=== PATIENT | female | born 1990 | race Two or more races ===

== ENCOUNTER 2019-08-09 17:34 | Emergency (ER) | payer BC ==
[~2019-08-09] VITALS: Ht 167.6 cm; Wt 69.9 kg
--- NOTE | 2019-08-09 17:58 | NUR ---
DR BEBE HOFF
[2019-08-09] MEDS ORDERED: IV NS 0.9% 1,000 ML BAG IV ONE (18:00)
--- NOTE | 2019-08-09 18:02 | NUR ---
US AT BEDSIDE
[2019-08-09] MEDS ORDERED: KETOROLAC TROMETHAMINE INJ 30 MG/ML VIAL ONE (18:07)
--- NOTE | 2019-08-09 18:16 | NUR ---
BIBS TO ER BED 16. AAOX4. NOT IN RESP DISTRESS. AMBULATORY. CAME IN FOR HEACY VAGINAL BLEEDING THAT STARTED TODAY. PT STATES THAT SHE FOUND OUT THAT SHE HAD A MISCARRIAGE. PT REPORTS CRAMPING. BLEEDING IS BRIGHT RED BLOOD WITH CLOTS. GRICELDA CHAVES WAS AT BEDSIDE FOR EVAL. ORDERS RECEIVED NOTED AND CARRIED OUT.
[2019-08-09] MEDS ORDERED: MISOPROSTOL 100 MCG TABLET PO SCH ×2 (18:30→21:30)
[2019-08-09] MEDS ORDERED: KETOROLAC TROMETHAMINE INJ 30 MG/ML VIAL IV ONE (18:30)
[2019-08-09 18:36] LABS: BASOPHILS # (AUTO) 0.1 /CMM (0.0-0.2); BASOPHILS % (AUTO) 0.4 % (0.0-2.0); EOSINOPHILS % (AUTO) 0.3 % (0.0-6.0); HEMATOCRIT 31 % (33-45); HEMOGLOBIN 10.4 g/dL (11.5-14.8); LYMPHOCYTES # (AUTO) 0.9 /CMM (0.8-4.8); LYMPHOCYTES % (AUTO) 6.3 % (20.0-44.0); MEAN CORPUSCULAR HGB CONC 34 g/dl (31.0-36.0); MEAN CORPUSCULAR VOLUME 94 fL (82-100); MONOCYTES # (AUTO) 0.7 /CMM (0.1-1.30); MONOCYTES % (AUTO) 4.7 % (2.0-12.0); NEUTROPHILS % (AUTO) 88.3 % (43.0-81.0); PLATELET COUNT (AUTO) 196 /CMM (150-450); RED BLOOD CELL COUNT(AUTO) 3.25 MIL/uL (4.0-5.2); WHITE BLOOD COUNT (AUTO) 14.7 K/uL (4.3-11.0)
[2019-08-09 18:48] LABS: BILIRUBIN,DIRECT 0.1 mg/dL (0.0-0.2); BILIRUBIN,TOTAL 0.3 mg/dL (0.2-1.0); CALCIUM, SERUM 7.6 mg/dL (8.5-10.1); CREATININE 0.6 mg/dL (0.6-1.3); POTASSIUM 3.9 mmol/L (3.5-5.1); TOTAL PROTEIN, SERUM 5.8 g/dL (6.4-8.2)
--- NOTE | 2019-08-09 20:18 | NUR ---
laboratory machinist at bedside blood draw
[2019-08-09 20:24] LABS: APPEARANCE,URINE Cloudy (CLEAR); BILIRUBIN,URINE LARGE (NEGATIVE); BLOOD, URINE Large Ery/uL (NEGATIVE); COLOR,URINE Red (YELLOW); KETONES,URINE 15 (NEGATIVE); LEUKOCYTE ESTERASE ,URINE Large (NEGATIVE); NITRITE, URINE Positive (NEGATIVE); PROTEIN,URINE >=300 mg/dl (NEGATIVE); UGLUCOSE Negative (NEGATIVE)
[2019-08-09 20:46] LABS: HEMATOCRIT 29 % (33-45); HEMOGLOBIN 9.6 g/dL (11.5-14.8); MEAN CORPUSCULAR HGB CONC 34 g/dl (31.0-36.0); MEAN CORPUSCULAR VOLUME 95 fL (82-100); PLATELET COUNT (AUTO) 119 /CMM (150-450); RED BLOOD CELL COUNT(AUTO) 2.99 MIL/uL (4.0-5.2)
[2019-08-09] MEDS ORDERED: MORPHINE SULFATE INJ 4 MG/ML DISP.SYRIN ONE (20:50)
--- NOTE | 2019-08-09 20:50 | NUR ---
PT STILL C/O GENERALIZED ABDOMINAL PAIN. DEGRASSEE, ENTRY LEVEL PROJECT COORDINATOR AWARE
[2019-08-09 20:59] LABS: RBC,URINE TOO NUMEROUS TO COUN /HPF (0-2)
[2019-08-09 21:00] LABS: BACTERIA,URINE Few /HPF (None Seen); SQUAMOUS EPITHELIAL CELL,UR Few /HPF (None Seen)
[2019-08-09] MEDS ORDERED: MORPHINE SULFATE INJ 2 MG/ML DISP.SYRIN IV ONE (21:00)
--- NOTE | 2019-08-09 21:00 | NUR ---
PAGED DR MALLIKA JORGE [facility] [phone]
--- NOTE | 2019-08-09 21:10 | NUR ---
DR TENA SPEAKING WITH [facility]
--- NOTE | 2019-08-09 21:49 | NUR ---
PT AMBULATED ON STEADY GAIT W/O ASSIST. PT ALSO WENT TO BATHROOM.
--- NOTE | 2019-08-09 22:03 | NUR ---
Patient discharged to home in stable condition. Written and verbal after care instructions given. Patient verbalizes understanding of instruction. Pt ambulatory with a steady gait
--- NOTE | 2019-08-09 22:04 | NUR ---
IV removed. Catheter intact and site benign. Pressure and 4x4 applied to site. No bleeding noted.
[2019-08-09 22:15] VITALS: BP 106/79
== END 2019-08-09 22:15 | disposition home or self-care (01) ==
LOC: ER 17:35
DX: O03.9 Complete or unspecified spontaneous abortion without complication (principal)
CPT/HCPCS: 36415; 76805; 80048; 80076; 81001; 85025; 85027; 85730; 93005; 96361; 96374; 96375; 99285; J1885; J2270; J7030 ×2; 81000-TC